=== PATIENT | male | born 1965 | race Caucasian/White ===

== ENCOUNTER 2020-02-05 18:40 | Emergency (ER) | payer BC ==
[2020-02-05] MEDS ORDERED: Albuterol 6.7 GM Inhaler INH ONE (19:36)
--- NOTE | 2020-02-05 19:42 | EDM.PDOC ---
ED HPI GENERAL MEDICAL PROBLEM - General Chief Complaint: Respiratory Problem Stated Complaint: OXYGEN LEVEL LOW COVID POSITIVE Time Seen by Provider: 02/05/20 19:20 Source of Information: Reports: Patient History Limitations: Reports: No Limitations - History of Present Illness INITIAL COMMENTS - FREE TEXT/NARRATIVE: The patient presents with a cough and chest tightness and low oxygen saturations. He is COVID positive. He tested positive last Friday. He started having a dry cough and fever and then lost his sense of taste and smell last this week. He also had some diarrhea. He did have a couple good days and today he had a good day until this evening. He had more shortness of breath, generalized weakness and cough. He checked his pulse oximeter and his oxygen sa turations dipped down to 87%. Here he is 90% and above. He has no history of lung problems like asthma or COPD. He does have a history of hypertension and hypercholesterolemia. He now has more chest tightness. Onset: Gradual Duration: Week(s): Location: Reports: Chest Quality: Reports: Other (tightness) Severity: Moderate Improves with: Reports: None Worsens with: Reports: None Associated Symptoms: Reports: Chest Pain, Cough, Fever/Chills, Shortness of Breath. Denies: Headaches, Nausea/Vomiting - Related Data Allergies Allergy/AdvReac Type Severity Reaction Status Date / Time No Known Allergies Allergy Verified 02/05/20 19:19 Home Meds: Home Meds dexAMETHasone [Dexamethasone] 6 mg PO DAILY #11 tab 02/05/20 [Rx] Past Medical History Cardiovascular History: Reports: High Cholesterol, Hypertension - Infectious Disease History Infectious Disease History: Reports: Novel Coronavirus Social & Family History - Tobacco Use Tobacco Use Status *Q: Former Tobacco User Used Tobacco, but Quit: Yes Month/Year Tobacco Last Used: 30 years ago - Caffeine Use Caffeine Use: Reports: Coffee - Recreational Drug Use Recreational Drug Use: No ED ROS GENERAL - Review of Systems Review Of Systems: See Below Constitutional: Reports: Fever, Chills, Malaise, Weakness, Fatigue HEENT: Reports: No Symptoms Respiratory: Reports: Shortness of Breath, Cough Cardiovascular: Reports: Chest Pain Endocrine: Reports: No Symptoms GI/Abdominal: Reports: Diarrhea. Denies: Abdominal Pain, Nausea, Vomiting : Reports: No Symptoms Musculoskeletal: Reports: No Symptoms ED EXAM, GENERAL - Physical Exam Exam: See Below Exam Limited By: No Limitations General Appearance: Alert, No Apparent Distress Ears: Normal External Exam Nose: Normal Inspection Head: Atraumatic, Normocephalic Neck: Normal Inspection Respiratory/Chest: No Respiratory Distress, Lungs Clear, Normal Breath Sounds Cardiovascular: Regular Rate, Rhythm, No Edema, No Murmur GI/Abdominal: Soft, Non-Tender, No Organomegaly, No Mass Back Exam: Normal Inspection Extremities: Normal Inspection #1 Interpretation EKG Date: 02/05/20 Time: 19:58 Rhythm: NSR Rate (Beats/Min): 93 [place]: Normal P-Wave: Present QRS: Normal ST-T: Normal QT: Normal Course - Vital Signs Last Recorded V/S: Last Vital Signs Temp 99 F 02/05/20 19:14 Pulse 94 02/05/20 19:14 Resp 18 02/05/20 19:14 BP 159/98 H 02/05/20 19:14 Pulse Ox 92 L 02/05/20 19:52 - Orders/Labs/Meds Orders: Active Orders 24 hr Category Date Time Status Cardiac Monitoring [RC] . DIRECTED Care 02/05/20 19:34 Active EKG Documentation Completion [RC] ASDIRECTED Care 02/05/20 19:36 Active RT Post Treatment Assessment [RC] Click to Edit Care 02/05/20 19:36 Active RT Pre-Treatment Assessment [RC] Click to Edit Care 02/05/20 19:36 Active Chest 1V Frontal [CR] Stat Exams 02/05/20 19:35 Taken EKG 12 Lead [EK] Stat Ther 02/05/20 19:36 Ordered Labs: Laboratory Tests 02/05/20 02/05/20 02/05/20 Range/Units 19:45 19:45 19:45 WBC 5.23 (4.23-9.07) K/mm3 RBC 5.11 (4.63-6.08) M/mm3 Hgb 14.7 (13.7-17.5) gm/dl Hct 41.7 (40.1-51.0) % MCV 81.6 (79.0-92.2) fl MCH 28.8 (25.7-32.2) pg MCHC 35.3 (32.2-35.5) g/dl RDW Std Deviation 39.2 (35.1-43.9) fL Plt Count 144 L (163-337) K/mm3 MPV 11.5 (9.4-12.3) fl Neut % (Auto) 69.0 H (34.0-67.9) % Lymph % (Auto) 18.4 L (21.8-53.1) % [place] % (Auto) 12.0 (5.3-12.2) % Eos % (Auto) 0.4 L (0.8-7.0) Baso % (Auto) 0.2 (0.1-1.2) % Neut # (Auto) 3.61 (1.78-5.38) K/mm3 Lymph # (Auto) 0.96 L (1.32-3.57) K/mm3 [place] # (Auto) 0.63 (0.30-0.82) K/mm3 Eos # (Auto) 0.02 L (0.04-0.54) K/mm3 Baso # (Auto) 0.01 (0.01-0.08) K/mm3 D-Dimer, Quantitative 0.54 H (0.19-0.50) mg/L Sodium 134 L (136-145) mEq/L Potassium 3.8 (3.5-5.1) mEq/L Chloride 99 (98-107) mEq/L Carbon Dioxide 25 (21-32) mEq/L Anion Gap 13.8 (5-15) BUN 11 (7-18) mg/dL Creatinine 1.1 (0.7-1.3) mg/dL Est Cr Clr Drug Dosing 77.66 mL/min Estimated GFR (MDRD) > 60 (>60) mL/min BUN/Creatinine Ratio 10.0 L (14-18) Glucose 110 H (74-106) mg/dL Calcium 8.6 (8.5-10.1) mg/dL Ferritin (26-388) ng/ml Total Bilirubin 0.4 (0.2-1.0) mg/dL AST 30 (15-37) U/L ALT 52 (16-63) U/L Alkaline Phosphatase 61 (46-116) U/L Lactate Dehydrogenase 213 (85-227) U/L Troponin I < 0.017 (0.00-0.056) ng/mL C-Reactive Protein 1.0 (<1.0) mg/dL Total Protein 7.9 (6.4-8.2) g/dl Albumin 3.6 (3.4-5.0) g/dl Globulin 4.3 gm/dL Albumin/Globulin Ratio 0.8 L (1-2) 02/05/20 Range/Units 19:45 WBC (4.23-9.07) K/mm3 RBC (4.63-6.08) M/mm3 Hgb (13.7-17.5) gm/dl Hct (40.1-51.0) % MCV (79.0-92.2) fl MCH (25.7-32.2) pg MCHC (32.2-35.5) g/dl RDW Std Deviation (35.1-43.9) fL Plt Count (163-337) K/mm3 MPV (9.4-12.3) fl Neut % (Auto) (34.0-67.9) % Lymph % (Auto) (21.8-53.1) % [place] % (Auto) (5.3-12.2) % Eos % (Auto) (0.8-7.0) Baso % (Auto) (0.1-1.2) % Neut # (Auto) (1.78-5.38) K/mm3 Lymph # (Auto) (1.32-3.57) K/mm3 [place] # (Auto) (0.30-0.82) K/mm3 Eos # (Auto) (0.04-0.54) K/mm3 Baso # (Auto) (0.01-0.08) K/mm3 D-Dimer, Quantitative (0.19-0.50) mg/L Sodium (136-145) mEq/L Potassium (3.5-5.1) mEq/L Chloride (98-107) mEq/L Carbon Dioxide (21-32) mEq/L Anion Gap (5-15) BUN (7-18) mg/dL Creatinine (0.7-1.3) mg/dL Est Cr Clr Drug Dosing mL/min Estimated GFR (MDRD) (>60) mL/min BUN/Creatinine Ratio (14-18) Glucose (74-106) mg/dL Calcium (8.5-10.1) mg/dL Ferritin 327 (26-388) ng/ml Total Bilirubin (0.2-1.0) mg/dL AST (15-37) U/L ALT (16-63) U/L Alkaline Phosphatase (46-116) U/L Lactate Dehydrogenase (85-227) U/L Troponin I (0.00-0.056) ng/mL C-Reactive Protein (<1.0) mg/dL Total Protein (6.4-8.2) g/dl Albumin (3.4-5.0) g/dl Globulin gm/dL Albumin/Globulin Ratio (1-2) Meds: Medications Discontinued Medications Generic Name Dose Route Start Last Admin Trade Name Sukhq PRN Reason Stop Dose Admin Albuterol 0 gm 02/05/20 19:36 02/05/20 19:48 Proventil Hfa INH 02/05/20 19:37 2 puff ONETIME ONE Administration - Re-Assessments/Exams Free Text/Narrative Re-Assessment/Exam: 02/05/20 19:41 I ordered an EKG, CXR, labs and albuterol 2 puffs. 02/05/20 21:33 His EKG shows a NSR with no acute changes. His CBC and CMP look good. His D- dimer was elevated at 0.54. His troponin is negative. 02/05/20 21:42 His CXR looks good. His oxygen saturations are in the low 90s and at times he will drop to 89%. He is not sick enough to be admitted. I will have him try the albuterol at home and I will get him on some dexamethasone for a week. I will give him a dose here to start with. Departure - Departure Time of Disposition: 21:45 Disposition: Home, Self-Care 01 Condition: Good Clinical Impression: COVID-19 - Discharge Information *PRESCRIPTION DRUG MONITORING PROGRAM REVIEWED*: Not Applicable *COPY OF PRESCRIPTION DRUG MONITORING REPORT IN PATIENT APRIL: Not Applicable Prescriptions: dexAMETHasone [Dexamethasone] 6 mg PO DAILY #11 tab Referrals: Alli Lyons MD [Primary Care Provider] - 1 Week Forms: ED Department Discharge Additional Instructions: Use the albuterol 2 puffs every 6 hours as needed for shortness of breath. Take the dexamethasone 1 1/2 pill daily for 7 days. Take tylenol or motrin for any fever or pain. Please return if you are worse. Keep checking your oxygen satu rations. If they are consistently below 90% please return. Sepsis Event Note (ED) - Evaluation Sepsis Screening Result: Possible Sepsis Risk - Focused Exam Vital Signs: Vital Signs Temp Pulse Resp BP Pulse Ox Pulse Ox 02/05/20 19:52 92 L 02/05/20 19:14 99 F 94 18 159/98 H 92 L - My Orders Last 24 Hours: My Active Orders 02/05/20 19:34 Cardiac Monitoring [RC] . DIRECTED 02/05/20 19:35 Chest 1V Frontal [CR] Stat 02/05/20 19:36 EKG Documentation Completion [RC] ASDIRECTED RT Post Treatment Assessment [RC] Click to Edit RT Pre-Treatment Assessment [RC] Click to Edit EKG 12 Lead [EK] Stat - Assessment/Plan Last 24 Hours: My Active Orders 02/05/20 19:34 Cardiac Monitoring [RC] . DIRECTED 02/05/20 19:35 Chest 1V Frontal [CR] Stat 02/05/20 19:36 EKG Documentation Completion [RC] ASDIRECTED RT Post Treatment Assessment [RC] Click to Edit RT Pre-Treatment Assessment [RC] Click to Edit EKG 12 Lead [EK] Stat
[2020-02-05] MEDS ORDERED: Dexamethasone 4 MG Tab PO ONE (21:43)
--- NOTE | 2020-02-06 10:21 | CR ---
Chest: Portable view of the chest was obtained. Comparison: No prior chest imaging is available. Heart size and mediastinum are normal. Lungs are clear with no acute parenchymal change. Bony structures are grossly intact. Impression: 1. Nothing acute is seen on portable chest x-ray. Diagnostic code #1
== END 2020-02-05 21:55 | disposition home or self-care (01) ==
LOC: JD.ED 18:40
DX: U07.1 COVID-19 (principal); I10 Essential (primary) hypertension; Z87.891 Personal history of nicotine dependence; Z79.899 Other long term (current) drug therapy
CPT/HCPCS: 36415; 71045; 80053; 82728; 83615; 84484; 85025; 85379; 86140; 93005; 94640; 99285; A9270; J8540